=== PATIENT | female | born 1965 | race Two or more races ===

== ENCOUNTER 2025-04-10 11:45 | Inpatient (IN) | payer MEDICAID, OTHER ==
[~2025-04-10] VITALS: Ht 157.5 cm; Wt 99.9 kg
[2025-04-10 12:05] VITALS: PULSE 74; RESP 13; O2SAT 99
--- NOTE | 2025-04-10 12:23 | ED.PDOC ---
Musculoskeletal HPI Comments 59 year old female presents to the ED via EMS with a chief compliant of LT hip pain s/p fall onset today. Patient states she was at the gym, was walking on treadmill, when treadmill speed increased on its own, patient fell, legs spread open landed on LT hip. She is currently experiencing LT hip and LT buttock pain. Denies head injury, LOC, nausea, vomiting, diarrhea, headache, dizziness, blurred vision, numbness/tingling. No other symptoms or modifying factors present at this time. Chief Complaint: Lower Extremity Time Seen by MD: 12:05 Reviewed Notes: Medications, Allergies Allergies: Coded Allergies: NO KNOWN ALLERGIES (Unverified , 04/10/25) Information Source: Patient, Emergency Med Personnel Mode of Arrival: EMS Location: Left Extremity Location: Hip, Other Timing: Hours Prehospital treatment: None Severity: Moderate Able to Move Extremity: Yes Bear Weight: Limited Pain: Moderate Mechanism: Spontaneous Circumstances: Sporting, Fall Onset of Symptoms: After Trauma Symptoms: Pain DVT Risk Factors: NONE Past Medical History PAST MEDICAL HISTORY: Denies Surgical History: Denies all surgeries MEDICAL TRANSCRIPTION RADIOLOGY History: No Pertinent MEDICAL TRANSCRIPTION RADIOLOGY History Family History Family History: Reviewed,noncontributory to illness, No family hx of Cancer, No family hx of DM, No family hx of Heart charis, No family hx of HTN, No family hx ofKidney charis, No family hx of Liver charis, No family hx of Lung charis, No family hx of Stroke Social History Smoker: Non-Smoker Alcohol: Denies ETOH Use Drugs: Denies Drug Use Lives In: Home Constitutional: denies: chills, diaphoresis, fatigue, fever, malaise, sweats, weakness, others EENTM: denies: blurred vision, double vision, ear bleeding, ear discharge, ear drainage, ear pain, ear ringing, eye pain, eye redness, hearing loss, mouth pain, mouth swelling, nasal discharge, nose bleeding, nose congestion, nose pain, photophobia, tearing, throat pain, throat swelling, voice changes, others Respiratory: denies: cough, hemoptysis, orthopnea, SOB at rest, shortness of breath, SOB with excertion, stridor, wheezing, others Cardiovascular: denies: chest pain, dizzy spells, diaphoresis, Dyspnea on exertion, edema, irregular heart beat, left arm pain, lightheadedness, palpitations, PND, syncope, others Gastrointestinal: denies: abdomen distended, abdominal pain, blood streaked bowels, constipated, diarrhea, dysphagia, difficulty swallowing, hematemesis, melena, nausea, poor appetite, poor fluid intake, rectal bleeding, rectal pain, vomiting, others Genitourinary: denies: abnormal vagina bleeding, burning, dyspareunia, dysuria, flank pain, frequency, hematuria, incontinence, pain, , vagina discharge, urgency, others Neurological: denies: dizziness, fainting, headache, left sided numbness, left sided weakness, numbness, paresthesia, pre-existing deficit, right sided numbness, right sided weakness, seizure, speech problems, tingling, tremors, weakness, others Musculoskeletal: reports: others (RT hip, RT buttock pain); denies: back pain, gout, joint pain, joint swelling, muscle pain, muscle stiffness, neck pain Integumetry: denies: bruises, change in color, change in hair/nails, dryness, laceration, lesions, lumps, rash, wounds, others Allergic/Immunocompromised: denies: Difficulty Healing, Frequent Infections, Hives, Itching, others Hematologic/Lymphatic: denies: anemia, blood clots, easy bleeding, easy bruising, swollen glands, others Endocrine: denies: excessive hunger, excessive sweating, excessive thirst, excessive urination, flushing, intolerance to cold, intolerance to heat, unexplained weight gain, unexplained weight loss, others Psychiatric: denies: anxiety, bipolar disorder, depression, hopeless, panic disorder, schizophrenia, sleepless, suicidal, others All Other Systems: Reviewed and Negative Physical Exam General Appearance: Normal HEENT: Normal ENT Inspection, Pharynx Normal, TMs Normal Neck: Full Range of Motion, Non-Tender, Normal, Normal Inspection Respiratory: Chest Non-Tender, Lungs Clear, No Accessory Muscle Use, No Respiratory Distress, Normal Breath Sounds Cardiovascular: No Edema, No JVD, No Murmur, No Gallop, Normal Peripheral Pulses, Regular Rate/Rhythm Breast Exam: Deferred Gastrointestinal: No Organomegaly, Non Tender, No Pulsatile Mass, Normal Bowel Sounds, Soft Genitalia: Deferred Pelvic: Deferred Rectal: Deferred Extremities: No calf tenderness, Normal capillary refill, No pedal edema Musculoskeletal : Location: Left Extremity Location: Other (tenderness to LT buttock, good bilateral DP, no deformity noted) Apperance: Normal Neurologic: Alert, 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 Was a procedure done?: No Differential Diagnosis EXT Differential Diagnosis: Other (fracture, dislocation, sprain, strain, contusion) X-Ray, Labs, Meds, VS Vital Signs Date Time Temp Pulse Resp B/P (MAP) Pulse Ox O2 Delivery O2 Flow Rate FiO2 04/10/25 13:06 110/72 04/10/25 12:05 98.5 74 13 121/73 (89) 99 98.5 04/10/25 11:51 98.5 79 6 115/79 99 98.5 Current Medications Medications (Trade) Dose Ordered Sig/Shruthi Route Start Time Stop Time Status Last Admin Fentanyl Citrate 12.5 mcg ONCE ONCE IV 04/10/25 13:15 04/10/25 13:16 DC 04/10/25 13:06 [place] [id number] Ph: [phone] DIAGNOSTIC IMAGING Diagnostic Imaging Report : [id number] Signed PATIENT: GREGORY MCMILLAN ACCT: [id number] UNIT: [id number] : 1965 LOC: ER ROOM / BED: / AGE / SEX: 59 / F ADM STATUS: REG ER SERVICE 1216 ORDERING PHYSICIAN: KRISH BEASLEY MD PROCEDURE(s): LHPCT - CT L HIP WITH OUT CONTRAST REASON: injury, r/o FRX ORDER NUMBER(s): [id number], ACCESSION NUMBER(s): [id number] CLINICAL INDICATION: Injury, r/o FRX TECHNIQUE: Noncontrast CT of the left hip was performed. Sagittal and coronal reformatted images are provided. COMPARISON: None CT Dose: CTDI volume is 37.5 mGy. Dose-length product is 1170.6 mGy*cm FINDINGS: No fracture or dislocation. No significant joint effusion. Soft tissues are unremarkable. IMPRESSION: 1. No acute fracture or dislocation. All CT scans at this medical facility are performed using dose modulation techniques as appropriate to a performed exam including the following: Automated exposure control was utilized; adjustment of the MA and/or KV according to patient size; and use of iterative reconstruction technique. ATED BY: ULI REYES MD DICTATED DATE/TIME: 04/10/25 1301 SIGNED BY: ULI REYES MD SIGNED DATE/TIME: 04/10/25 1301 CC: Time of 1ST Reevaluation: 12:35 Reevaluation 1ST: Unchanged Time of 2ND Reevaluation: 14:01 Reevaluation 2ND: Unchanged Patient Education/Counseling: Diagnosis, Treatment, Prognosis, Need For Follow Up Family Education/Counseling: Diagnosis, Treatment, Prognosis, Need For Follow Up Comments despite of having received fentanyl, pt's pain is unimproved. ct does not show a fracture or any abnormalities. she will be admitted for pain control and further evaluation. she is unable to sit or bear weight due to pain Additional Information The following tests were ordered, and results were reviewed by me: CT L HIP WO CON Additional Information was gathered from interviewing the following independent historians: EMS, spouse I reviewed and agreed with the following test results read by other providers:CT L HIP WO CON I discussed treatment and results with medical personnel and: patient and spouse Comprehensive systems review obtained and negative except for what is stated in the HPI. Departure 1 Departure Time of Disposition: 14:02 Impression: Primary Impression: Intractable pain Additional Impressions: Hip pain, left Falling Disposition: ADMITTED INPATIENT Admit to: Med Surg Condition: Stable Discharged With: Self, Relative Critical Care Note Critical Care Time?: No Stability Stability form required: No Heart Score Heart Score: Heart Score Response (Comments) Value History N/A 0 EKG N/A 0 Age N/A 0 Risk Factors N/A 0 Troponin N/A 0 Total 0 I personally scribed for KRISH BEASLEY MD ([email or web address]) on 04/10/25 at 12:23. Electronically submitted by Angelica Shafer ([email or web address]). I personally scribed for KRISH BEASLEY MD ([email or web address]) on 04/10/25 at 13:16. Electronically submitted by Angelica Shafer ([email or web address]). KRISH BEASLEY MD Apr 10, 2025 12:23
[2025-04-10] MEDS ORDERED: fentaNYL CITRATE 100 MCG/2 ML VL IM ONE (12:30)
--- NOTE | 2025-04-10 13:03 | DVH ---
CLINICAL INDICATION: Injury, r/o FRX TECHNIQUE: Noncontrast CT of the left hip was performed. Sagittal and coronal reformatted images are provided. COMPARISON: None CT Dose: CTDI volume is 37.5 mGy. Dose-length product is 1170.6 mGy*cm FINDINGS: No fracture or dislocation. No significant joint effusion. Soft tissues are unremarkable. IMPRESSION: 1. No acute fracture or dislocation. All CT scans at this medical facility are performed using dose modulation techniques as appropriate to a performed exam including the following: Automated exposure control was utilized; adjustment of the MA and/or KV according to patient size; and use of iterative reconstruction technique.
[2025-04-10] MEDS: fentaNYL CITRATE 100 MCG/2 ML VL IV ONE (13:06)
[2025-04-10] MEDS ORDERED: MORPHINE SULFATE INJ 2 MG/ml SYRG IV PRN (14:30)
[2025-04-10 14:46] VITALS: BP 118/75; PULSE 62; RESP 17; TEMP 99; O2SAT 100
[2025-04-10] MEDS: CYCLOBENZAPRINE HCL 10 MG TAB PO ONE (15:10)
[2025-04-10] MEDS: IBUPROFEN 600 MG TAB PO ONE (15:10)
--- NOTE | 2025-04-10 15:10 | DVHHPRES ---
History of Present Illness Resident Creating Document: VINCENTROHITHADALID RESIDENT History of Present Illness Patient is a 59-year-old female with no significant medical history presented to the ED after she had a fall in the gym. Patient reported she was working out on the treadmill when she fell down and hit her hip, legs spread out and she heard a crack and had severe pain in her left hip, left gluteal region. She was not able to get up on her own after the fall and had to be helped by EMS. Patient was in severe pain when she was in the ED, not able to put weight on her left hip and could not walk following which she had to be admitted to the hospital for further evaluation. Medical history: Denies Surgical history: Right knee meniscal tear repair Social history: Patient lives with the and denies smoking, alcohol, drug use Home medications: None Review of Systems Review of Systems Reports of severe pain in the left hip and hamstrings on extension of the leg at the knee joint Unable to walk and put weight on the left leg Denies shortness of breath, chest pain, nausea or vomiting Allergies: Coded Allergies: NO KNOWN ALLERGIES (Unverified , 04/10/25) Exam Vital Signs Vital Signs Date Time Temp Pulse Resp B/P (MAP) Pulse Ox O2 Delivery O2 Flow Rate FiO2 04/10/25 13:06 110/72 04/10/25 13:00 68 13 100 04/10/25 12:05 Room Air* 0 21 04/10/25 12:05 98.5 98.5 Exam Skin - Patients skin is warm and dry. HEENT - normocephalic, atraumatic, moist mucous membranes, no pallor or icterus Neck - full ROM, no LAD, no JVD Pulmonary - B/L clear breath sounds cardiovascular - regular S1,S2 heard. GI - soft, nontender abdomen. no hepatospleenomegaly. Bowel sounds normoactive Neurological - Patient is A/O X 4 . Bilateral upper extremity strength 5/5, bilateral lower extremity strength 5/5 but is not able to extend the left leg, no facial droop, normal speech, no tremor, no sensory deficiets. SEPSIS Sepsis Screen Date sepsis recognized/suspect: Apr 10, 2025 Time Sepsis recognized/suspect: 1205 Recent Procedure: No On Antibiotic Therapy: No Respiratory Rate >20: No Heart Rate >90: No Temp<36 C (96.8 F) or >38.3 C: No SBP <90 or MAP <65 mmHG: No New Acute Mental Status Change: No Is the patient on CPAP, BIPAP,: No Physician Orders Ct L Hip With Out Contrast (04/10/25 12:16) Admit (04/10/25 14:22) Oxygen By Nasal Cannula (04/10/25 14:22) Stat Ekg For Chest Pain (04/10/25 14:22) Notify Md Of Changes From Base (04/10/25 14:22) Morphine Sulfate Injection (04/10/25 14:30) Cyclobenzaprine Tablet (Flexeril Tablet) (04/10/25 14:30) Cyclobenzaprine Tablet (Flexeril Tablet) (04/10/25 22:00) Pelvis Ap (04/10/25 14:22) Complete Blood Count (04/10/25 14:22) Comprehensive Metabolic Panel (04/10/25 14:22) PTPTT (04/10/25 14:22) Ibuprofen Tablet (Motrin Tablet) (04/10/25 14:30) Ibuprofen Tablet (Motrin Tablet) (04/10/25 22:00) Vital Signs Date Time Temp Pulse Resp B/P (MAP) Pulse Ox O2 Delivery O2 Flow Rate FiO2 04/10/25 13:06 110/72 04/10/25 13:00 68 13 103/63 (76) 100 04/10/25 12:05 74 99 Room Air* 0 21 04/10/25 12:05 98.5 74 13 121/73 (89) 99 98.5 04/10/25 11:51 98.5 79 6 115/79 99 98.5 Medications Medications Dose Ordered Sig/Shruthi Route Start Time Stop Time Status Last Admin Dose Admin Fentanyl Citrate 12.5 mcg ONCE ONCE IV 04/10/25 13:15 04/10/25 13:16 DC 04/10/25 13:06 12.5 MCG Assessment/Plan Assessment/Plan Status post mechanical fall Intractable left hip/gluteal pain needing IV medication - pelvic x-ray pending - CT left hip showed no acute fracture or dislocation - IV morphine - muscle relaxants PUD prophylaxis: Protonix DVT prophylaxis: Enoxaparin Goals of care discussed with the patient and for over 16 minutes. Full code Time spent: 31 minutes Plan discussed with Dr. Kay Plan discussed with: Patient, Spouse, Other (RN) My Orders Orders - MADHAVI KAUR RESIDENT Procedure Category Date Status Time Admit ADMIT 04/10/25 Transmitted 14:22 Oxygen By Nasal RT 04/10/25 Transmitted Cannula 14:22 Stat Ekg For Chest NIMA 04/10/25 Transmitted Pain 14:22 Notify Md Of Changes NIMA 04/10/25 Transmitted From Base 14:22 Morphine Sulfate PHA 04/10/25 Transmitted Injection 14:30 Cyclobenzaprine PHA 04/10/25 Transmitted Tablet (Flexeril 14:30 Cyclobenzaprine PHA 04/10/25 Transmitted Tablet (Flexeril 22:00 Pelvis Ap XY 04/10/25 Transmitted 14:22 Complete Blood Count LAB 04/10/25 Transmitted 14:22 Comprehensive LAB 04/10/25 Transmitted Metabolic Panel 14:22 PTPTT LAB 04/10/25 Transmitted 14:22 Ibuprofen Tablet PHA 04/10/25 Verified (Motrin Tablet) 14:30 Ibuprofen Tablet PHA 04/10/25 Verified (Motrin Tablet) 22:00 Date of Service: Apr 10, 2025 Billing Provider: MICHELLE KAY MD Common Visit Codes: [id number] INP/OBS CARE (HIGH) Secondary Visit Codes: [id number] CARE PLAN 30 MINUTES MADHAVI KAUR RESIDENT Apr 10, 2025 15:10 MICHELLE KAY MD Apr 11, 2025 23:06
--- NOTE | 2025-04-10 15:33 | DVH ---
CLINICAL INDICATION: fall, TECHNIQUE: 1 radiographic views of the pelvis were obtained. Comparison: None FINDINGS/IMPRESSION: Bony structures are intact normal alignment. No fracture or dislocation.
[2025-04-10] MEDS: PANTOPRAZOLE 40 MG TAB PO ONE (15:49)
[2025-04-10 16:09] LABS: Hematocrit 38.3 % (36.0-46.0); Hemoglobin 12.9 g/dL (12.2-16.2); Mean Corpuscular Hemoglobin 31.0 pg (28.0-32.0); Mean Corpuscular Volume 92.1 fL (80.0-100.0); Nucleated Red Blood Cells % 0.0 %
[2025-04-10 16:25] LABS: Albumin 3.9 g/dL (3.2-4.8); Alkaline Phosphatase 110 U/L (46-116); Anion Gap 10 (5-15); BUN/Creatinine Ratio 17.8 (10.0-20.0); Bilirubin, Total 0.4 mg/dL (0.2-1.0); Blood Urea Nitrogen 13 mg/dL (9-23); Carbon Dioxide 26 mmol/L (20-31); Chloride 106 mmol/L (98-107); Glucose 103 mg/dL (74-106); Potassium 4.4 mmol/L (3.5-5.1); Sodium 142 mmol/L (136-145); Total Protein 6.7 g/dL (5.7-8.2)
[2025-04-10 16:36] LABS: Alanine Aminotransferase 50 U/L (7-40); Calcium 10.6 mg/dL (8.7-10.4)
[2025-04-10 16:42] LABS: INR 0.99 (0.9-1.15); Partial Thromboplastin Time 25.2 SEC (24.5-34.5); Prothrombin Time 10.5 sec (9.3-11.8)
[2025-04-10 16:57] VITALS: BP 118/75; PULSE 62; RESP 17; TEMP 99; O2SAT 100
[2025-04-10 17:09] VITALS: O2SAT 100
[2025-04-10 21:00] VITALS: BP 103/70; PULSE 74; RESP 19; TEMP 98.1; O2SAT 97
[2025-04-10] MEDS: IBUPROFEN 600 MG TAB PO SCH (21:36)
[2025-04-10] MEDS: CYCLOBENZAPRINE HCL 10 MG TAB PO SCH (21:36)
[2025-04-11] VITALS (7 sets, daily range): BP systolic 94–110; BP diastolic 54–73; PULSE 56–80; RESP 16–20; TEMP 97.4–98.7; O2SAT 95–98
[2025-04-11] MEDS: PANTOPRAZOLE 40 MG TAB PO SCH (05:39)
[2025-04-11 09:31] LABS: Triglycerides 83 mg/dL (< 150)
[2025-04-11 09:33] LABS: HDL Cholesterol 51 mg/dL (40-59)
[2025-04-11 09:34] LABS: Cholesterol 165 mg/dL (< 200)
[2025-04-11] MEDS: ENOXAPARIN SOD 40 MG/0.4 ML SYRINGE SC SCH (10:42)
--- NOTE | 2025-04-11 16:55 | DVHPNRES ---
Progress Note Date Seen: Apr 11, 2025 Resident Creating Document: RANDAL YOUNG RESIDENT Medical Necessity Reason Pt with a Central, PICC or Fol: No Subjective Review of Systems Patient is a 59-year-old female with no significant medical history presented to the ED after she had a fall in the gym. Patient reported she was working out on the treadmill when she fell down and hit her hip, legs spread out and she heard a crack and had severe pain in her left hip, left gluteal region. She was not able to get up on her own after the fall and had to be helped by EMS. Patient was in severe pain when she was in the ED, not able to put weight on her left hip and could not walk following which she had to be admitted to the hospital for further evaluation. Medical history: Denies Surgical history: Right knee meniscal tear repair family History: Noncontributory Social history: Patient lives with the and denies smoking, alcohol, drug use Home medications: None 04/11/25: patient seen at bedside. Patient complains of 5/10 hip pain, left buttock pain, states that she feels way better than yesterday. X-ray hip, CT hip showed no fracture. Vitamin-D deficiency. Objective vital signs Vital Sign Date Time Temp Pulse Resp B/P (MAP) Pulse Ox O2 Delivery O2 Flow Rate FiO2 04/11/25 13:22 97.4 69 16 103/69 (80) 98 97.4 04/11/25 08:00 Room Air* 0 21 Total Intake and Output 04/10/25 04/10/25 04/11/25 15:00 23:00 07:00 Intake Total 50 ml 500 ml Balance 50 ml 500 ml medications Current Medications Medications Dose Ordered Sig/Shruthi Route Start Time Stop Time Status Last Admin Dose Admin Morphine Sulfate 2 mg [id number] PRN IV 04/10/25 14:30 Cyclobenzaprine HCl 5 mg TID PO 04/10/25 22:00 04/11/25 13:44 5 MG Ibuprofen 600 mg BID PO 04/10/25 22:00 04/11/25 10:42 600 MG Pantoprazole Sodium 40 mg DAILY@0600 PO 04/11/25 06:00 04/11/25 05:39 40 MG Enoxaparin Sodium 40 mg DAILY SC 04/11/25 10:00 04/11/25 10:42 40 MG Examination General: Patient alert and oriented in person, place and time. Patient following commands. HEENT: Normocephalic, atraumatic, moist mucous membranes Respiratory/pulmonary: Clear lungs bilaterally, vesicular murmurs present in almost all lung salgado, no associated crackles or wheezes. Cardiovascular: Normal heart sounds S1 and S2 with no associated murmurs Abdomen: Abdomen nondistended, there is no pain to palpation in any of the abdominal quadrants, no palpable masses. Extremities: Left hip, left buttock tenderness. Peripheral Pulses: 3+ Radial (R). 3+ Radial (L). 3+ Dorsalis pedis (R). 3+ Dorsalis pedis(L) Skin: No rashes or pruritus, there is no sacral edema present at this time. Neurological: Intact cranial nerves with no focal neurologic deficits laboratory and microbiology Laboratory Tests 04/10/25 16:00 Test 04/10/25 16:00 Range/Units Serum Glucose 103 74-106 mg/dL Problem List/Assessment/Plan Problem List/Assessment/Plan Status post mechanical fall Intractable left hip/gluteal pain needing IV medication - pelvic x-ray showed no acute fracture. - CT left hip showed no acute fracture or dislocation - IV morphine - muscle relaxants Vitamin-D deficiency -vitamin-D given. PPI prophylaxis: Protonix DVT prophylaxis: Lovenox Goals of care addressed with the patient for more than 27 minutes: Full code status Case discussed with Dr. Kay, patient and nurse Plan discussed with: Patient My Orders My Orders Orders - RANDAL YOUNG Procedure Category Date Status Time Drug Screen LAB 04/11/25 Logged 08:14 Urinalysis LAB 04/11/25 Logged 08:14 Date of Service: Apr 11, 2025 Billing Provider: MICHELLE KAY MD Common Visit Codes: [id number] INP/OBS CARE(HIGH) RANDAL YOUNG Apr 11, 2025 16:55 MICHELLE KAY MD Apr 11, 2025 23:07
[2025-04-11] MEDS: ERGOCALCIFEROL 50,000 UNIT(1.25MG) CAP PO SCH (17:55)
[2025-04-12 01:00] VITALS: BP 102/66; PULSE 68; RESP 19; TEMP 97.9; O2SAT 95
[2025-04-12 05:00] VITALS: BP 120/76; PULSE 69; RESP 19; TEMP 97.9; O2SAT 98
[2025-04-12 06:37] LABS: Hematocrit 35.0 % (36.0-46.0); Hemoglobin 12.0 g/dL (12.2-16.2); Mean Corpuscular Hemoglobin 31.5 pg (28.0-32.0); Mean Corpuscular Volume 91.9 fL (80.0-100.0); Nucleated Red Blood Cells % 0.1 %
[2025-04-12 06:57] LABS: Anion Gap 8 (5-15); Carbon Dioxide 26 mmol/L (20-31); Potassium 4.1 mmol/L (3.5-5.1); Sodium 142 mmol/L (136-145)
[2025-04-12 06:59] LABS: Calcium 9.6 mg/dL (8.7-10.4)
[2025-04-12 07:01] LABS: Chloride 108 mmol/L (98-107)
[2025-04-12 07:03] LABS: BUN/Creatinine Ratio 26.2 (10.0-20.0); Blood Urea Nitrogen 17 mg/dL (9-23); Glucose 94 mg/dL (74-106)
[2025-04-12 08:00] VITALS: PULSE 67; RESP 19; O2SAT 97
[2025-04-12 09:00] VITALS: BP 129/73; PULSE 67; RESP 19; TEMP 96.9; O2SAT 97
[2025-04-12 13:00] VITALS: BP 107/63; PULSE 71; RESP 19; TEMP 97.7; O2SAT 98
[2025-04-12 13:11] LABS: Hepatitis B Surface Antigen Negative (Negative)
[2025-04-12 13:30] LABS: Hepatitis C Antibody Negative (Negative)
[2025-04-12] MEDS ORDERED: CYCL-611 PO (13:48)
[2025-04-12 14:34] VITALS: BP 129/73; PULSE 67; RESP 19; TEMP 97.7; O2SAT 97
--- NOTE | 2025-04-12 15:13 | DVHDSRES ---
Discharge Summary Date of Admission Resident Creating Document: RANDAL YOUNG Apr 10, 2025 at 14:22 Date of Discharge: Apr 12, 2025 Admitting Diagnosis Status post mechanical fall Labs/Diagnostic Data: Laboratory Results Test 04/12/25 04:55 04/11/25 08:59 04/10/25 16:00 White Blood Count 6.1 10^3/uL (4.4-10.8) Red Blood Count 3.81 10^6/uL (4.0-5.20) Hemoglobin 12.0 g/dL (12.2-16.2) Hematocrit 35.0 % (36.0-46.0) Mean Corpuscular Volume 91.9 fL (80.0-100.0) Mean Corpuscular Hemoglobin 31.5 pg (28.0-32.0) Mean Corpuscular Hemoglobin Concent 34.3 g/dL (32.0-36.0) Red Cell Distribution Width 12.8 % (11.8-14.3) Platelet Count 219 10^3/uL (140-450) Mean Platelet Volume 7.7 fL (6.9-10.8) Neutrophils (%) (Auto) 46.5 % (37.0-80.0) Lymphocytes (%) (Auto) 38.6 % (10.0-50.0) Monocytes (%) (Auto) 8.5 % (0.0-12.0) Eosinophils (%) (Auto) 5.9 % (0.0-7.0) Basophils (%) (Auto) 0.5 % (0.0-2.0) Neutrophils # (Auto) 2.8 10 ^3/uL (1.6-8.6) Lymphocytes # (Auto) 2.4 10 ^3/uL (0.4-5.4) Monocytes # (Auto) 0.5 10 ^3/uL (0-1.3) Eosinophils # (Auto) 0.4 10 ^3/uL (0-0.8) Basophils # (Auto) 0 10 ^3/uL (0-0.2) Nucleated Red Blood Cells 0.1 % Sodium Level 142 mmol/L (136-145) Potassium Level 4.1 mmol/L (3.5-5.1) Chloride Level 108 mmol/L (98-107) Carbon Dioxide Level 26 mmol/L (20-31) Anion Gap 8 (5-15) Blood Urea Nitrogen 17 mg/dL (9-23) Creatinine 0.65 mg/dL (0.550-1.02) Glomerular Filtration Rate Calc 101 mL/min (>90) BUN/Creatinine Ratio 26.2 (10.0-20.0) Serum Glucose 94 mg/dL (74-106) Calcium Level 9.6 mg/dL (8.7-10.4) Hemoglobin A1c 5.6 % A1C (<5.7) Triglycerides Level 83 mg/dL (< 150) Cholesterol Level 165 mg/dL (< 200) LDL Cholesterol 99 mg/dL (< 100) HDL Cholesterol 51 mg/dL (40-59) Vitamin D 25-Hydroxy 24.2 ng/mL (30.0-100) Prothrombin Time 10.5 sec (9.3-11.8) Prothrombin Time INR 0.99 (0.9-1.15) Activated Partial Thromboplast Time 25.2 SEC (24.5-34.5) Total Bilirubin 0.4 mg/dL (0.2-1.0) Aspartate Amino Transferase (AST) 32 U/L (13-40) Alanine Aminotransferase (ALT) 50 U/L (7-40) Alkaline Phosphatase 110 U/L (46-116) Total Protein 6.7 g/dL (5.7-8.2) Albumin 3.9 g/dL (3.2-4.8) Hepatitis B Surface Antigen Negative (Negative) Hepatitis C Antibody Negative (Negative) Other Laboratory Tests 04/12/25 04:55 Brief Hx & Hospital Course: Patient is a 59-year-old female with no significant medical history presented to the ED after she had a fall in the gym. Patient reported she was working out on the treadmill when she fell down and hit her hip, legs spread out and she heard a crack and had severe pain in her left hip, left gluteal region. She was not able to get up on her own after the fall and had to be helped by EMS. Patient was in severe pain when she was in the ED, not able to put weight on her left hip and could not walk following which she had to be admitted to the hospital for further evaluation. Medical history: Denies Surgical history: Right knee meniscal tear repair family History: Noncontributory Social history: Patient lives with the and denies smoking, alcohol, drug use Home medications: None Brief hospital course: Patient came to the hospital with chief complaints of left hip, left buttock pain status post mechanical fall. Pelvic x-ray showed no acute fracture, CT left hip showed no acute fracture or dislocation, patients pain was managed with IV morphine, muscle relaxants. Patient had vitamin-D deficiency for which vitamin-D was given. Patient is stable for discharge and is to follow-up with physical therapy outpatient. DVT prophylaxis was given with Lovenox, PPI prophylaxis with Protonix. Patient communicated understanding of her discharge plan and has agreed. Patient has agreed to follow-up with discharge Clinic in 1 week. General: Patient alert and oriented in person, place and time. Patient following commands. HEENT: Normocephalic, atraumatic, moist mucous membranes Respiratory/pulmonary: Clear lungs bilaterally, vesicular murmurs present in almost all lung salgado, no associated crackles or wheezes. Cardiovascular: Normal heart sounds S1 and S2 with no associated murmurs Abdomen: Abdomen nondistended, there is no pain to palpation in any of the abdominal quadrants, no palpable masses. Extremities: Left hip, left buttock tenderness. Peripheral Pulses: 3+ Radial (R). 3+ Radial (L). 3+ Dorsalis pedis (R). 3+ Dorsalis pedis(L) Skin: No rashes or pruritus, there is no sacral edema present at this time. Neurological: Intact cranial nerves with no focal neurologic deficits Patient is to take Cyclobenzaprine 5 mg TID. Operations or Procedures ORDERING PHYSICIAN: MADHAVI KAUR RESIDENT PROCEDURE(s): PELVS - PELVIS AP REASON: fall, ORDER NUMBER(s): [id number], ACCESSION NUMBER(s): [id number] CLINICAL INDICATION: fall, TECHNIQUE: 1 radiographic views of the pelvis were obtained. Comparison: None FINDINGS/IMPRESSION: Bony structures are intact normal alignment. No fracture or dislocation. ATED BY: DEVIN ORTIZ Jr., DO DICTATED DATE/TIME: 04/10/251530 SIGNED BY: DEVIN ORTIZ Jr., SIGNED DATE/TIME: 04/10/251530 ORDERING PHYSICIAN: KRISH BEASLEY MD PROCEDURE(s): LHPCT - CT L HIP WITH OUT CONTRAST REASON: injury, r/o FRX ORDER NUMBER(s): [id number], ACCESSION NUMBER(s): [id number] CLINICAL INDICATION: Injury, r/o FRX TECHNIQUE: Noncontrast CT of the left hip was performed. Sagittal and coronal reformatted images are provided. COMPARISON: None CT Dose: CTDI volume is 37.5 mGy. Dose-length product is 1170.6 mGy*cm FINDINGS: No fracture or dislocation. No significant joint effusion. Soft tissues are unremarkable. IMPRESSION: 1. No acute fracture or dislocation. All CT scans at this medical facility are performed using dose modulation techniques as appropriate to a performed exam including the following: Automated exposure control was utilized; adjustment of the MA and/or KV according to patient size; and use of iterative reconstruction technique. ATED BY: ULI REYES MD DICTATED DATE/TIME: 04/10/25 1301 SIGNED BY: ULI REYES MD SIGNED DATE/TIME: 04/10/25 1301 CC: Condition at Discharge: Stable Final Diagnosis/Problems List Status post mechanical fall Intractable left hip/gluteal pain needing IV medication Vitamin-D deficiency Discharge Disposition: Home Discharge Instruct/Medications Diet: Consistent carbohydrate Activity: No Restrictions, As Tolerated Follow Up/Referral: follow up with discharge clinic in 1 week follow up with PCP Medications: as per EMR Scheduled PRN Cyclobenzaprine HCl (Cyclobenzaprine Hydrochlo), 5 MG PO TID PRN Discharge Statement: "Patient was advised to return to the ER or call 911 if any headaches, dizziness, shortness of breath, chest pain, abdominal pain, bleeding, fevers, or worsening of medical condition. Patient was counseled about treatment plan, medications, possible side effects, patientverbalized understanding. All questions were answered to the best of my ability. This discharge took greater then 30 minutes in planning, reviewing documentation, counseling the patient, and discussing with other team members." ASSESSMENT ASSESSMENT Assessment mechanical fall Date of Service: Apr 12, 2025 Billing Provider: MICHELLE TRAN MD Common Visit Codes: 82373-VSA/OBS DISCH DAY >30min RANDAL YOUNG RESIDENT Apr 12, 2025 15:13 MICHELLE TRAN MD Apr 13, 2025 00:03
== END 2025-04-12 14:50 | disposition home or self-care (01) | DRG 351 ==
LOC: ER 11:45 → EDBD 11:45 → OVERFLOW 14:22 → WEST WING 16:15
PROVIDERS: ADMIT Internal Medicine; ATTEND Internal Medicine
DX: M25.552 Pain in left hip (principal); E55.9 Vitamin D deficiency, unspecified; Y92.39 Other specified sports and athletic area as the place of occurrence of the external cause; Y99.8 Other external cause status; W19.XXXA Unspecified fall, initial encounter; Y93.A1 Activity, exercise machines primarily for cardiorespiratory conditioning
CPT/HCPCS: 36415; 72170; 73700; 80048; 80053; 80061; 82306; 83036; 85025; 85610; 85730; 86803; 87340; 96374; 97163; G0378